=== PATIENT | male | born 1955 | race Caucasian/White ===

== ENCOUNTER 2019-09-09 17:05 | Emergency (ER) | payer SELFPAY ==
[2019-09-09] MEDS ORDERED: LIDOCAINE 1% W/EPI 1:100,000 MDV 50 ML VIAL ONE (17:32)
--- NOTE | 2019-09-09 18:09 | EDPHYS ---
Physician Documentation [facility] Name: Prashant Cortez Age: 64 yrs Sex: Male : 1955 Arrival Date: 09/09/2019 Time: 17:07 Bed 8 Private MD: ED Physician Spencer Lew HPI: 09/08 18:02 This 64 yrs old Male presents to ER via Ambulatory with complaints of ma2 Laceration To Hand. 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 The laceration(s) is(are) located on the left hand. Associated signs and symptoms: Pertinent negatives: heavy bleeding, numbness distal to injury. The patient has experienced similar episodes in the past. Historical: - Allergies: 17:11 No Known Allergies; ca1 - PMHx: 17:11 Hypertension; ca1 - Immunization history:: Adult Immunizations Last tetanus immunization: < 5 years ago. - Social history:: Smoking status: Patient reports the use of cigarette tobacco products, smokes one pack cigarettes per day. Patient/guardian denies using alcohol, street drugs, The patient lives with family. - Family history:: not pertinent. ROS: 18:02 Constitutional: Negative for fever, chills, and weight loss. ma2 18:02 All other systems are negative. Exam: 18:02 Constitutional: This is a well developed, well nourished patient who is awake, alert, ma2 and in no acute distress. Neck: Trachea midline, no thyromegaly or masses palpated, and no cervical lymphadenopathy. Supple, full range of motion without nuchal rigidity, or vertebral point tenderness. No Meningismus. Chest/axilla: Normal chest wall appearance and motion. Nontender with no deformity. No lesions are appreciated. Cardiovascular: Regular rate and rhythm with a normal S1 and S2. No gallops, murmurs, or rubs. Normal PMI, no JVD. No pulse deficits. Respiratory: Lungs have equal breath sounds bilaterally, clear to auscultation and percussion. No rales, rhonchi or wheezes noted. No increased work of breathing, no retractions or nasal flaring. Abdomen/GI: Soft, non-tender, with normal bowel sounds. No distension or tympany. No guarding or rebound. No evidence of tenderness throughout. Skin: Warm, dry with normal turgor. Normal color with no rashes, no lesions, and no evidence of cellulitis. MS/ Extremity: left palm with multiple lacerations and flaps ot base of left thumbs measures about 15 cm, deep and irregular however no vascular injury, cap refill is brisk at thumb, sensation is intact,and all thumb movement are intact and all other finger movements are intact Pulses equal, no cyanosis. Neurovascular intact. Full, normal range of motion. Neuro: Awake and alert, GCS 15, oriented to person, place, time, and situation. Cranial nerves II-XII grossly intact. Motor strength 5/5 in all extremities. Sensory grossly intact. Cerebellar exam normal. Normal gait. Vital Signs: 17:08 BP 129 / 62; Pulse 55; Resp 16 S; Temp 97.8(O); Pulse Ox 96% on R/A; Weight 77.11 kg ca1 (R); Height 5 ft. 8 in. (172.72 cm) (R); Pain 10/10; 17:08 Body Mass Index 25.85 (77.11 kg, 172.72 cm) ca1 Laceration: 18:02 Wound Repair of 15cm ( 5.9in ) subcutaneous laceration to left hand. Irregularly ma2 shaped.. Skin/tissue flap noted.. Profuse bleeding noted.. Hemostasis noted.. Distal neuro/vascular/tendon intact. Anesthesia: Local anesthetic administered with 15 mls of 1% lidocaine w/ Epi. Wound prep: Extensive cleansing by me, Wound irrigation by me. Skin closed with 15 3-0 Prolene using interrupted sutures and sterile technique. Dressed with Bacitracin, Neosporin, 4x4's. Patient tolerated well. MDM: 17:13 Patient medically screened. ma2 18:02 Differential diagnosis: superficial laceration, multiple flaps with small base ma2 alignment 80% achieved however with extensive skin loss risk of infection is high, as well as risk of flap ischemia. Data reviewed: vital signs, nurses notes. Counseling: I had a detailed discussion with the patient and/or guardian regarding: the historical points, exam findings, and any diagnostic results supporting the discharge/admit diagnosis, the presence of at least one elevated blood pressure reading (>120/80) during this emergency department visit, the need for outpatient follow up. Response to treatment: the patient's symptoms have markedly improved after treatment. 09/08 17:32 Order name: Prolene, Sutures; Complete Time: 17:32 [facility] 09/08 17:32 Order name: Dressing - Wound; Complete Time: 17:33 [facility] 09/08 17:32 Order name: Gloves, Sterile; Complete Time: 17:33 [facility] 09/08 17:32 Order name: Setup Suture Tray; Complete Time: :33 [facility] Administered Medications: 17:25 Drug: Lidocaine-Epinephrine -1%: (1:100,000) 1 application {Note: administered by Dr. chapis Lew.} Volume: 20 ml; Route: Infiltration; 17:34 Follow up: Response: No adverse reaction [facility] Disposition: 09/09/19 18:08 Discharged to Home. Impression: Laceration without foreign body of left hand. - Condition is Stable. - Discharge Instructions: Laceration Care, Adult, [id number]. - Prescriptions for Augmentin 875- 125 mg Oral Tablet - take 1 tablet by ORAL route every 12 hours for 10 days; 20 tablet. Diclofenac Sodium 75 mg Oral Tablet Sustained Release - take 1 tablet by ORAL route 2 times per day; 30 tablet. - Medication Reconciliation Form, Thank You Letter, Antibiotic Education, Prescription Opioid Use form. - Follow up: Private Physician; When: Tomorrow; Reason: Continuance of care. - Notes: remove sutures in 10 days Signatures: Latricia Bui RN RN jl7 Spencer Lew MD MD ma2 Agueda Ta RN RN ca1 Corrections: (The following items were deleted from the chart) 18:26 18:08 09/09/2019 18:08 Discharged to Home. Impression: Laceration without foreign body jl7 of left hand. Condition is Stable. Forms are Medication Reconciliation Form, Thank You Letter, Antibiotic Education, Prescription Opioid Use. Follow up: Private Physician; When: Tomorrow; Reason: Continuance of care. scott
--- NOTE | 2019-09-09 18:09 | ER ---
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 Lac on the L wrist. Coronavirus screen: Proceed with normal triage. Patient denies a cough. Patient denies shortness of breath or difficulty breathing. Patient denies measured and/or subjective temperature greater than 100.4F prior to today's visit. Patient denies travel on a cruise ship or to a country the [facility] currently lists as an affected area. Patient denies contact with known and/or suspected case of COVID-19. Ebola Screen: Patient negative for fever greater than or equal to 101.5 degrees Fahrenheit, and additional compatible Ebola Virus Disease symptoms Patient denies exposure to infectious person. Patient denies travel to an Ebola-affected area in the 21 days before illness onset. No symptoms or risks identified at this time. Initial Sepsis Screen: Does the patient meet any 2 criteria? No. Patient's initial sepsis screen is negative. Does the patient have a suspected source of infection? No. Patient's initial sepsis screen is negative. Risk Assessment: Do you want to hurt yourself or someone else? Patient reports no desire to harm self or others. Onset of symptoms was September 09, 2019. 17:08 Method Of Arrival: Ambulatory ca1 17:08 Acuity: KSENIA 3 ca1 Historical: - Allergies: 17:11 No Known Allergies; ca1 - PMHx: 17:11 Hypertension; ca1 - Immunization history:: Adult Immunizations Last tetanus immunization: < 5 years ago. - Social history:: Smoking status: Patient reports the use of cigarette tobacco products, smokes one pack cigarettes per day. Patient/guardian denies using alcohol, street drugs, The patient lives with family. - Family history:: not pertinent. Screenin:15 Abuse screen: Denies threats or abuse. Denies injuries from another. Nutritional jl7 screening: No deficits noted. Tuberculosis screening: No symptoms or risk factors identified. Fall Risk None identified. Assessment: 17:15 General: Appears in no apparent distress. uncomfortable, Behavior is cooperative, jl7 agitated, anxious. Pain: Complains of pain in left hand Pain currently is 10 out of 10 on a pain scale. Noted to be agitated, resistant to movement, body appears to be mildly shaking due to pain. Neuro: Level of Consciousness is awake, alert, obeys commands, Oriented to person, place, time, situation. Cardiovascular: Patient's skin is warm and dry. Respiratory: Airway is patent Respiratory effort is even, unlabored, Respiratory pattern is symmetrical, tachypnea. Derm: Skin is diaphoretic, Skin is normal, Skin temperature is cool. Musculoskeletal: Range of motion: limited in CMC of right thumb. Injury Description: Laceration sustained to left hand is jagged, 7.6 to 20 cm long, not bleeding, was sustained less than 30 minutes ago. is bleeding no active bleeding noted. Vital Signs: 17:08 BP 129 / 62; Pulse 55; Resp 16 S; Temp 97.8(O); Pulse Ox 96% on R/A; Weight 77.11 kg ca1 (R); Height 5 ft. 8 in. (172.72 cm) (R); Pain 10/10; 17:08 Body Mass Index 25.85 (77.11 kg, 172.72 cm) ca1 ED Course: 17:07 Patient arrived in ED. as 17:10 Triage completed. ca1 17:11 Arm band placed on right wrist. ca1 17:12 Latircia Bui, ABRAN is Primary Nurse. jl7 17:13 Spencer Lew MD is Attending Physician. ma2 17:15 Patient has correct armband on for positive identification. Bed in low position. Call jl7 light in reach. Side rails up X 1. 18:24 Assist provider with laceration repair on left hand that was between 7.6 to 12.5 cm chapis using sutures. Set up tray. Performed by Spencer Lew MD Dressed with 4X4s, Kerlix, Neosporin, Patient tolerated poorly. Patient did not have IV access during this emergency room visit. Administered Medications: 17:25 Drug: Lidocaine-Epinephrine -1%: (1:100,000) 1 application {Note: administered by Dr. jl7 Alzahri.} Volume: 20 ml; Route: Infiltration; 17:34 Follow up: Response: No adverse reaction jl7 Outcome: 18:08 Discharge ordered by . scott 18:24 Discharged to home ambulatory. [facility] 18:24 Condition: stable 18:24 Discharge instructions given to patient, Instructed on discharge instructions, follow up and referral plans. medication usage, Demonstrated understanding of instructions, follow-up care, medications, Prescriptions given X 2. 18:26 Patient left the ED. jl7 Signatures: Dinah Dia Jahala, RN RN jl7 Spencer Lew MD MD ma2 Acob, Cheryl, RN RN ca1 Corrections: (The following items were deleted from the chart) 17:11 17:08 Acuity: KSENIA 4 ca1 ca1
[2019-09-09 18:32] VITALS: BP 129/62; TEMP 97.8; O2SAT 96
== END 2019-09-09 18:26 | disposition home or self-care (01) ==
LOC: ER 17:05
PROC: 0JQK0ZZ Repair Left Hand Subcutaneous Tissue and Fascia, Open Approach (ICD-10-PCS; principal; 2019-09-09)
DX: S61.412A Laceration without foreign body of left hand, initial encounter (principal); W29.8XXA Contact with other powered hand tools and household machinery, initial encounter; Y93.9 Activity, unspecified
CPT/HCPCS: 99283